=== PATIENT | female | born 1955 | race Two or more races ===

== ENCOUNTER 2021-07-04 08:06 | Inpatient (IN) | payer SELFPAY ==
[~2021-07-04] VITALS: Ht 167.6 cm; Wt 83.9 kg
--- NOTE | 2021-07-04 08:10 | NUR ---
BIBRA 89 FROM HOME C/O R HIP PAIN S/P MECHANICAL GROUND LEVEL FALL. VITALS ARE WITHIN NORMAL LIMITS. BREATHIN GIS EVEN AND UNLABORED. PT ATTACHED TO MONITOR. DR REINA AT BEDSIDE.
--- NOTE | 2021-07-04 08:14 | NUR ---
IV ESTABLISHED L HAND 22G
--- NOTE | 2021-07-04 08:18 | NUR ---
X RAY AT BEDSIDE
--- NOTE | 2021-07-04 09:18 | NUR ---
CALLED SHAHLA FOR EXPLANATION OF READ
--- NOTE | 2021-07-04 09:32 | NUR ---
DR REINA AT BEDSIDE
--- NOTE | 2021-07-04 09:37 | NUR ---
COVID TEST COLLECTED AND SENT
--- NOTE | 2021-07-04 09:37 | NUR ---
MOVE SHEET SUBMITTED AND CALLED FOR MS BED.
--- NOTE | 2021-07-04 09:42 | NUR ---
DR. CALDERA SPEAKING WITH DR. REINA
--- NOTE | 2021-07-04 09:45 | NUR ---
LAB AT BEDSIDE
[2021-07-04] MEDS ORDERED: CHOLESTEROL MED (10:31)
[2021-07-04] MEDS ORDERED: INSULIN (10:31)
--- NOTE | 2021-07-04 11:27 | NUR ---
URINARY CATHETER PLACED
--- NOTE | 2021-07-04 13:09 | NUR ---
BED 324-1
[2021-07-04 13:13] LABS: BASOPHILS # (AUTO) 0.1 K/uL (0.0-0.2); BASOPHILS % (AUTO) 0.4 % (0.0-2.0); EOSINOPHILS % (AUTO) 1.2 % (0.0-6.0); HEMATOCRIT 38 % (33-45); HEMOGLOBIN 11.8 g/dL (11.5-14.8); LYMPHOCYTES # (AUTO) 2.8 K/uL (0.8-4.8); LYMPHOCYTES % (AUTO) 20.6 % (20.0-44.0); MEAN CORPUSCULAR HGB CONC 31 g/dl (31.0-36.0); MEAN CORPUSCULAR VOLUME 81 fL (82-100); MONOCYTES # (AUTO) 0.8 K/uL (0.1-1.30); MONOCYTES % (AUTO) 5.7 % (2.0-12.0); NEUTROPHILS # (AUTO) 9.7 K/uL (1.8-8.9); NEUTROPHILS % (AUTO) 72.1 % (43.0-81.0); PLATELET COUNT (AUTO) 311 K/uL (150-450); RED BLOOD CELL COUNT(AUTO) 4.63 MIL/uL (4.0-5.2); WHITE BLOOD COUNT (AUTO) 13.5 K/uL (4.3-11.0)
--- NOTE | 2021-07-04 13:18 | NUR ---
REPORT GIVEN TO DEVI FOR RUTHIE
[2021-07-04 13:30] LABS: ALBUMIN 3.2 g/dL (3.4-5.0); BILIRUBIN,DIRECT 0.2 mg/dL (0.0-0.2); BILIRUBIN,TOTAL 0.3 mg/dL (0.2-1.0); CALCIUM, SERUM 8.7 mg/dL (8.5-10.1); CREATININE 1.1 mg/dL (0.6-1.3); POTASSIUM 4.1 mmol/L (3.5-5.1); TOTAL PROTEIN, SERUM 7.3 g/dL (6.4-8.2)
--- NOTE | 2021-07-04 13:30 | NUR ---
RN NOTE- 66 Y/O FEMALE PT W HIP / FEMUR FX ON UNIT FOR ADMISSION. REPORT RECEIVED. PT PLACED IN 324-2, MADE COMFORTABLE, CALL LIGHT AND PHONE IN REACH. SIDE RAILS UP, BED LOCKED.
--- NOTE | 2021-07-04 13:31 | NUR ---
PROFESSOR OF FLORICULTURE NOTE- 66 Y/O FEMALE BROUGHT BY AMBULANCE TO HOSPITAL AFTER GROUND LEVEL FALL AND RT THIGH / HIP PAIN. RESULTING XR SHOWS FRACTURE RT FEMUR. PT W PMHX- HLD, DM THOUGH MEDS UNKNOWN AT PRESENT. FAMILY DOESN'T KNOW AND IT IS DIFFICULT TO ASCERTAIN RX. PT ALSO HAS HX OF LEFT HIP FX FIVE YEARS AGO. NO OTHER MEDICAL HX. PT HAS NKA, IS FULL CODE AND ON REG DIET. PT DENIES PAIN AT PRESENT UNLESS MOVED. PT HAS HAD COVID VACCINE X 2 AND BOOSTER. VS- BP- 131/61, HR- 94, RR- 18, T- 98.8, SATURATION 95% RA. DR SHARIFA CARBALLO ADMITTING AND WILL COMPLETE MED RECON. PT FAMILY AT BEDSIDE. BED LOCKED, SIDE RAILS UP, CALL LIGHT IN REACH . COMFORTABLE . ORTHO CONSULT PENDING. MONITOR AND ASSIST
[2021-07-04 16:00] VITALS: BP 121/68
[2021-07-04] MEDS ORDERED: DEXTROSE 50%-WATER 50 ML DISP.SYRIN IV PRN (17:00)
[2021-07-04] MEDS ORDERED: ONDANSETRON HCL/PF 4 MG/2 ML VIAL IVP PRN (17:00)
[2021-07-04] MEDS ORDERED: ZOLPIDEM TARTRATE 5 MG TABLET PO PRN (17:00)
[2021-07-04] MEDS ORDERED: Z GUARD REMEDY 2 OZ OINT TP PRN (17:00)
[2021-07-04] MEDS ORDERED: ACETAMINOPHEN 325 MG TABLET PO PRN (17:00)
[2021-07-04] MEDS: BLOOD SUGAR DIAGNOSTIC 1 EACH STRIP IN SCH ×2 (17:23→22:18)
[2021-07-04] MEDS: INSULIN REGULAR, HUMAN 100 UNIT/ML 3 ML VIAL SQ PRN ×2 (17:25→22:21)
[2021-07-04] MEDS: ENOXAPARIN SODIUM 40 MG/0.4 ML DISP.SYRIN SQ SCH (17:56)
[2021-07-04] MEDS: INSULIN ASPART/LISPRO 100 UNIT/ML CARTRIDGE SQ SCH (17:56)
[2021-07-04] MEDS: MORPHINE SULFATE INJ 2 MG/ML DISP.SYRIN IV PRN (18:20)
--- NOTE | 2021-07-04 18:48 | NUR ---
RN CLOSING NOTE- PT IN BED, COMFORTABLE AWAKE W FAMILY AT BEDSIDE. PENDING ORIF IN SURGERY FOR RT FEMUR FX. MSO4 2MG FOR PAIN AND ZOFRAN FOR NAUSEA. PT W FAMILY, BED LOCKED , NEEDS ATTENDED. REPORT TO NOC SHIFT
--- NOTE | 2021-07-04 19:05 | NUR ---
LINUX ADMINISTRATOR OPENING NOTES: RECEIVED PATIENT IN BED, AWAKE, NO S/S OF DISTRESS NOTED. NO COMPLAIN OF PAIN. CALL LIGHT WITHIN REACH. BED ALARM ON. BED IN LOWEST AND LOCKED POSITION. BEDREST. ON SEIZURE PRECAUTION, SIDERAILS PADDED. WITH COSBY CATHETER INTACT, DRAINING CLEAR YELLOW URINE. FAMILY MEMBER AT THE BEDSIDE.
[2021-07-04 20:00] VITALS: BP 137/93
--- NOTE | 2021-07-04 21:00 | NUR ---
TELE MONITOR ELECTRODES PLACED ON THE PATIENT. PATIENT IS ON SINUS 80.
[2021-07-04] MEDS: INSULIN GLARGINE, 100 UNIT/ML CARTRIDGE SQ SCH (22:22)
[2021-07-05] VITALS: BP 111/60
[2021-07-05] MEDS: IV NS 0.9% 1,000 ML IV PRN ×2 (02:55→17:43)
[2021-07-05 04:00] VITALS: BP 112/63
[2021-07-05] MEDS: BLOOD SUGAR DIAGNOSTIC 1 EACH STRIP IN SCH ×4 (06:51→21:40)
[2021-07-05] MEDS: INSULIN REGULAR, HUMAN 100 UNIT/ML 3 ML VIAL SQ PRN ×4 (06:53→21:43)
--- NOTE | 2021-07-05 07:30 | NUR ---
REGISTERED NURSE MIDWIFE NOTES PT IN BED, AWAKE, ALERT AND ORIENTED, VERBALLY RESPONSIVE AND ABLE TO MAKE NEEDS KNOWN, DENIES PAIN, NOT IN DISTRESS, IV FLUIDS INFUSING WELL, CALL LIGHT WITHIN REACH, F/C IN PLACE.
[2021-07-05 08:00] VITALS: BP 138/63
[2021-07-05] MEDS: PANTOPRAZOLE 40 MG VIAL IV SCH (08:08)
[2021-07-05] MEDS: INSULIN ASPART/LISPRO 100 UNIT/ML CARTRIDGE SQ SCH ×3 (08:13→17:39)
[2021-07-05 13:08] LABS: BASOPHILS # (AUTO) 0.1 K/uL (0.0-0.2); BASOPHILS % (AUTO) 0.6 % (0.0-2.0); EOSINOPHILS % (AUTO) 3.3 % (0.0-6.0); HEMATOCRIT 34 % (33-45); HEMOGLOBIN 10.9 g/dL (11.5-14.8); LYMPHOCYTES # (AUTO) 3.5 K/uL (0.8-4.8); LYMPHOCYTES % (AUTO) 33.9 % (20.0-44.0); MEAN CORPUSCULAR HGB CONC 32 g/dl (31.0-36.0); MEAN CORPUSCULAR VOLUME 82 fL (82-100); MONOCYTES # (AUTO) 0.8 K/uL (0.1-1.30); MONOCYTES % (AUTO) 7.7 % (2.0-12.0); NEUTROPHILS # (AUTO) 5.6 K/uL (1.8-8.9); NEUTROPHILS % (AUTO) 54.5 % (43.0-81.0); PLATELET COUNT (AUTO) 273 K/uL (150-450); RED BLOOD CELL COUNT(AUTO) 4.14 MIL/uL (4.0-5.2); WHITE BLOOD COUNT (AUTO) 10.3 K/uL (4.3-11.0)
[2021-07-05 14:15] LABS: CALCIUM, SERUM 7.6 mg/dL (8.5-10.1); CREATININE 1.2 mg/dL (0.6-1.3); MAGNESIUM 1.7 mg/dL (1.8-2.4); POTASSIUM 3.8 mmol/L (3.5-5.1)
[2021-07-05 16:00] VITALS: BP 114/52
[2021-07-05] MEDS ORDERED: MAGNESIUM OXIDE 400 MG TABLET PO ONE (16:00)
[2021-07-05] MEDS: ENOXAPARIN SODIUM 40 MG/0.4 ML DISP.SYRIN SQ SCH (16:14)
--- NOTE | 2021-07-05 18:23 | NUR ---
RN MS NOTES PT IN BED, RESTING, NO COMPLAINT AT THIS TIME, RESPIRATIONS NORMAL, VISITED BY FAMILY, REPOSITIONED FOR COMFORT, PRECAUTIONS OBSERVED, BLOOD SUGAR CHECKED, INSULIN ADMINISTERED ORDERED, PM CARE PROVIDED, ASSISTED WITH MEALS, ALL NEEDS ATTENDED.
--- NOTE | 2021-07-05 19:20 | NUR ---
MS/RN NOTES PT RESTING IN BED, EASILY AROUSABLE TO STIMULI. A/OX4. SHE DENIES PAIN AT THIS TIME. RESPIRATIONS EVEN/UNLABORED. IV SITE R-FA #20G INTACT/PATENT/FLUSHES WELL. F/C IN PLACE, DRAINING WELL WITH CLEAR YELLOW URINE. PT IN NO ACUTE DISTRESS. SAFETY MEASURES IN PLACE, BED IN LOWEST LOCKED POSITION, S/R UPX2, CALL LIGHT WITHIN REACH. WILL CONT TO MONITOR.
[2021-07-05 20:00] VITALS: BP 144/65
[2021-07-05] MEDS: INSULIN GLARGINE, 100 UNIT/ML CARTRIDGE SQ SCH (21:43)
[2021-07-05] MEDS: MORPHINE SULFATE INJ 2 MG/ML DISP.SYRIN IV PRN (23:20)
[2021-07-06] MEDS: BLOOD SUGAR DIAGNOSTIC 1 EACH STRIP IN SCH ×4 (06:31→21:47)
[2021-07-06] MEDS: INSULIN REGULAR, HUMAN 100 UNIT/ML 3 ML VIAL SQ PRN ×4 (06:34→21:51)
[2021-07-06] MEDS: INSULIN ASPART/LISPRO 100 UNIT/ML CARTRIDGE SQ SCH ×3 (06:35→17:37)
--- NOTE | 2021-07-06 07:03 | NUR ---
MS/RN CLOSING NOTE PT SLEPT WELL DURING THE NIGHT. RESPIRATIONS EVEN/UNLABORED. IV INTACT, CONT ON NS @75ML/HR. NO ACUTE EVENTS DURING THE SHIFT. ALL NEEDS ATTENDED TO. SAFETY MEASURES MAINTAINED.
[2021-07-06] MEDS: IV NS 0.9% 1,000 ML IV PRN ×2 (07:19→21:31)
--- NOTE | 2021-07-06 07:30 | NUR ---
MS RN OPENING NOTES RECEIVED PATIENT AWAKE ON BED AND A/O X4. ON ROOM AIR BREATHING EVENLY AND UNLABORED. NO SOB NOTED. NOT IN DISTRESS. WITH NO COMPLAINTS OF PAIN OR DISCOMFORT AT THIS TIME. WITH IV ACCESS AT RIGHT FOREARM G20 WITH IVF NS AT 75ML/HR INFUSING WELL. IV SITE IS PATENT AND INTACT. SAFETY MEASURES IN PLACED. CALL LIGHT WITHIN REACH. BED ON LOWEST LOCKED POSITION, SIDE RAILS UP X2. WILL CONTINUE TO MONITOR.
[2021-07-06 08:00] VITALS: BP 144/52
[2021-07-06] MEDS: PANTOPRAZOLE 40 MG VIAL IV SCH (08:45)
[2021-07-06 11:03] LABS: BASOPHILS # (AUTO) 0.1 K/uL (0.0-0.2); BASOPHILS % (AUTO) 0.6 % (0.0-2.0); EOSINOPHILS % (AUTO) 3.7 % (0.0-6.0); HEMATOCRIT 30 % (33-45); HEMOGLOBIN 9.9 g/dL (11.5-14.8); LYMPHOCYTES # (AUTO) 2.5 K/uL (0.8-4.8); LYMPHOCYTES % (AUTO) 25.9 % (20.0-44.0); MEAN CORPUSCULAR HGB CONC 33 g/dl (31.0-36.0); MEAN CORPUSCULAR VOLUME 81 fL (82-100); MONOCYTES # (AUTO) 0.8 K/uL (0.1-1.30); MONOCYTES % (AUTO) 8.1 % (2.0-12.0); NEUTROPHILS % (AUTO) 61.7 % (43.0-81.0); PLATELET COUNT (AUTO) 245 K/uL (150-450); RED BLOOD CELL COUNT(AUTO) 3.67 MIL/uL (4.0-5.2); WHITE BLOOD COUNT (AUTO) 9.7 K/uL (4.3-11.0)
[2021-07-06 11:39] LABS: ALBUMIN 2.6 g/dL (3.4-5.0); BILIRUBIN,TOTAL 0.4 mg/dL (0.2-1.0); CREATININE 1.1 mg/dL (0.6-1.3); POTASSIUM 3.8 mmol/L (3.5-5.1); TOTAL PROTEIN, SERUM 6.5 g/dL (6.4-8.2)
[2021-07-06] MEDS ORDERED: ANESTHESIA TRAY IN PYXIS 1 EA TRAY MC ONE (11:49)
[2021-07-06 13:14] LABS: MAGNESIUM 2.1 mg/dL (1.8-2.4); PHOSPHORUS 4.2 mg/dL (2.5-4.9)
[2021-07-06] MEDS ORDERED: BISACODYL (5 MG) 5 MG TABLET.DR PO PRN (15:00)
[2021-07-06 16:00] VITALS: BP 127/60
[2021-07-06] MEDS: ENOXAPARIN SODIUM 40 MG/0.4 ML DISP.SYRIN SQ SCH (17:00)
--- NOTE | 2021-07-06 18:40 | NUR ---
RN NOTES PATIENT IS SCHEDULED FOR ORIF SURGERY TOMORROW BUT PATIENT AND FAMILY REFUSED FOR SURGERY. THEY SAID THEY ARE NOT READY FOR IT TOMORROW. REPORTED TO DR. CALDERA AND DR. CALDERA SPOKE WITH THE FAMILY BY PHONE. DR. CALDERA SAID HE WILL BE HERE TO SEE AND SPEAK WITH THE FAMILY TOMORROW.
--- NOTE | 2021-07-06 19:01 | NUR ---
MS RN CLOSING NOTES PATIENT RESTING ON BED AND A/O X4. ON 02 AT 2LPM BREATHING EVENLY AND UNLABORED. NO SOB NOTED. NOT IN DISTRESS. WITH NO COMPLAINTS OF PAIN OR DISCOMFORT AT THIS TIME. WITH IV ACCESS AT RIGHT AC G20 WITH IVF NS AT 75ML/HR INFUSING WELL. IV SITE IS PATENT AND INTACT. DUE MEDS GIVEN. SAFETY MEASURES IN PLACED. CALL LIGHT WITHIN REACH. BED ON LOWEST LOCKED POSITION, SIDE RAILS UP X4 PADDED FOR SEIZURE PRECAUTION. WILL ENDORSE TO NEXT SHIFT FOR RUTHIE.
--- NOTE | 2021-07-06 19:45 | NUR ---
MS URIBE OPENING NOTES RECEIVED PATIENT LAYING AWAKE IN BED. FAMIILY AT BEDSIDE. A/O X4. PATIENT WITH REGULAR AND UNLABORED BREATHING ON 3LPM VIA NASAL CANULA, TOLERATED WELL. NO SIGNS AND SYMPTOMS OF DISTRESS NOTED AT THIS TIME. NO COMPLAINS OF PAIN OR DISCOMFORT AT THIS TIME. IV ACCESS RFA G#20 RUNNING NS @ 75 ML/HR. IV ACCESS PATENT AND INTACT. SAFETY PRECAUTIONS ENFORCED BED LOCKED AND AT LOWEST POSITION. SIDERAILS UP X2. CALL LIGHT WITHIN REACH AT ALL TIMES. WILL CONTINUE TO MONITOR PATIENT. Addendum: 07/06/21 at 2309 by BRITNEY HERRERA RN PATIENT IS ON ROOM AIR DISREGARD 3 LPM NASAL CANULA
[2021-07-06 20:00] VITALS: BP 117/56
[2021-07-06] MEDS: INSULIN GLARGINE, 100 UNIT/ML CARTRIDGE SQ SCH (21:49)
[2021-07-07] MEDS: MORPHINE SULFATE INJ 2 MG/ML DISP.SYRIN IV PRN ×2 (01:38→18:06)
--- NOTE | 2021-07-07 01:39 | NUR ---
MS RN NOTES PATIENT COMPLAINED OF PAIN. ADMINISTERED MORPHINE 2MG IV PRN ORDERED BY HOSPITALIST.
[2021-07-07] MEDS: BLOOD SUGAR DIAGNOSTIC 1 EACH STRIP IN SCH ×4 (06:32→22:48)
[2021-07-07] MEDS: INSULIN REGULAR, HUMAN 100 UNIT/ML 3 ML VIAL SQ PRN ×3 (06:38→23:01)
--- NOTE | 2021-07-07 07:12 | NUR ---
MS RN CLOSING NOTES PATIENT STILL LAYING AWAKE IN BED. FAMIILY AT BEDSIDE. A/O X4. PATIENT WITH REGULAR AND UNLABORED BREATHING ON ROOM AIR, TOLERATED WELL. NO SIGNS AND SYMPTOMS OF DISTRESS NOTED AT THIS TIME. NO COMPLAINS OF PAIN OR DISCOMFORT AT THIS TIME. IV ACCESS RFA G#20 RUNNING NS @ 75 ML/HR. IV ACCESS PATENT AND INTACT. SAFETY PRECAUTIONS ENFORCED BED LOCKED AND AT LOWEST POSITION. SIDERAILS UP X2. CALL LIGHT WITHIN REACH AT ALL TIMES. WILL ENDORSE CONTINUITY OF CARE TO DAY SHIFT NURSE.
[2021-07-07] MEDS: INSULIN ASPART/LISPRO 100 UNIT/ML CARTRIDGE SQ SCH ×3 (07:30→18:10)
--- NOTE | 2021-07-07 07:30 | NUR ---
PT RECEIVED RESTING COMFORTABLY IN BED WITH EYES CLOSED. NO S/S OR C/O PAIN OR DISTRESS NOTED. SIDE RAILS UP X2, CALL LIGHT LEFT WITHIN REACH. WILL CONTINUE PLAN OF CARE.
[2021-07-07 07:42] LABS: BASOPHILS % (AUTO) 0.5 % (0.0-2.0); EOSINOPHILS % (AUTO) 2.8 % (0.0-6.0); HEMATOCRIT 30 % (33-45); HEMOGLOBIN 9.9 g/dL (11.5-14.8); LYMPHOCYTES % (AUTO) 31.4 % (20.0-44.0); MEAN CORPUSCULAR HGB CONC 33 g/dl (31.0-36.0); MEAN CORPUSCULAR VOLUME 81 fL (82-100); MONOCYTES # (AUTO) 0.7 K/uL (0.1-1.30); MONOCYTES % (AUTO) 7.2 % (2.0-12.0); NEUTROPHILS # (AUTO) 5.6 K/uL (1.8-8.9); NEUTROPHILS % (AUTO) 58.1 % (43.0-81.0); PLATELET COUNT (AUTO) 247 K/uL (150-450); RED BLOOD CELL COUNT(AUTO) 3.69 MIL/uL (4.0-5.2); WHITE BLOOD COUNT (AUTO) 9.6 K/uL (4.3-11.0)
[2021-07-07 08:06] LABS: CALCIUM, SERUM 8.3 mg/dL (8.5-10.1); CREATININE 0.9 mg/dL (0.6-1.3); MAGNESIUM 2.1 mg/dL (1.8-2.4); PHOSPHORUS 3.7 mg/dL (2.5-4.9); POTASSIUM 3.8 mmol/L (3.5-5.1)
[2021-07-07 08:11] VITALS: BP 112/55
[2021-07-07] MEDS: ENOXAPARIN SODIUM 40 MG/0.4 ML DISP.SYRIN SQ SCH (11:43)
[2021-07-07] MEDS: PANTOPRAZOLE 40 MG TABLET.DR PO SCH (12:07)
[2021-07-07 15:53] VITALS: BP 123/55
--- NOTE | 2021-07-07 19:27 | NUR ---
CHANGE OF SHIFT REPORT PT RESTING COMFORTABLY IN BED. NO S/S OR C/O PAIN OR DISTRESS NOTED. SIDE RAILS UP X2, CALL LIGHT LEFT WITHIN REACH. PT KEPT CLEAN, DRY, AND COMFORTABLE. NO SIGNIFICANT CHANGES SINCE PREVIOUS SHIFT. WILL GIVE REPORT TO FRAN URIBE.
--- NOTE | 2021-07-07 19:30 | NUR ---
MS RN OPENING NOTE RECEIVED PATIENT WITH EYES CLOSED, EASY TO AROUSE. FARSI SPEAKING. NO S/S OF APPARENT DISTRESS. NO C/O PAIN. IV NS RUNNING AT 75CC/HR. COSBY CATHETER NOTED IN PLACE DRAINING CLEAR NORTH YELLOW URINE. SAFETY IN PLACE. WILL CONTINUE WITH PLAN OF CARE.
[2021-07-07 20:00] VITALS: BP 126/65
[2021-07-07] MEDS: INSULIN GLARGINE, 100 UNIT/ML CARTRIDGE SQ SCH (22:00)
--- NOTE | 2021-07-08 02:00 | NUR ---
PATIENT CAME BACK FROM SURGERY, PATIENT IS IN ROOM SLEEPING. VITAL SIGNS STABLE.
[2021-07-08] MEDS: IV NS 0.9% 1,000 ML IV PRN ×2 (04:12→16:46)
[2021-07-08] MEDS: BLOOD SUGAR DIAGNOSTIC 1 EACH STRIP IN SCH ×4 (06:54→22:46)
[2021-07-08] MEDS: INSULIN REGULAR, HUMAN 100 UNIT/ML 3 ML VIAL SQ PRN ×2 (06:55→17:57)
[2021-07-08] MEDS ORDERED: FENTANYL PF 250MCG/5ML AMPUL ONE (07:02)
[2021-07-08] MEDS ORDERED: HYDROMORPHONE INJ 2 MG/ML DISP.SYRIN ONE (07:02)
[2021-07-08] MEDS ORDERED: ROCURONIUM BROMIDE 50 MG/5 ML ONE (07:03)
[2021-07-08] MEDS ORDERED: MIDAZOLAM HCL 2 MG/2ML VIAL ONE (07:03)
[2021-07-08] MEDS ORDERED: FAMOTIDINE/PF INJ 20 MG/2 ML VIAL IV ONE (07:03)
[2021-07-08 07:19] LABS: BASOPHILS # (AUTO) 0.1 K/uL (0.0-0.2); BASOPHILS % (AUTO) 0.9 % (0.0-2.0); HEMATOCRIT 31 % (33-45); HEMOGLOBIN 9.9 g/dL (11.5-14.8); LYMPHOCYTES # (AUTO) 3.1 K/uL (0.8-4.8); LYMPHOCYTES % (AUTO) 34.4 % (20.0-44.0); MEAN CORPUSCULAR HGB CONC 32 g/dl (31.0-36.0); MEAN CORPUSCULAR VOLUME 81 fL (82-100); MONOCYTES # (AUTO) 0.6 K/uL (0.1-1.30); MONOCYTES % (AUTO) 7.1 % (2.0-12.0); NEUTROPHILS # (AUTO) 4.7 K/uL (1.8-8.9); NEUTROPHILS % (AUTO) 52.6 % (43.0-81.0); PLATELET COUNT (AUTO) 294 K/uL (150-450); RED BLOOD CELL COUNT(AUTO) 3.75 MIL/uL (4.0-5.2)
[2021-07-08] MEDS ORDERED: POLYMYXIN B SULFATE 500,000 UNITS ONE (07:26)
[2021-07-08] MEDS ORDERED: BUPIVACAINE 0.5 % PF 150 MG/30 ML VIAL ONE (07:27)
[2021-07-08] MEDS: PANTOPRAZOLE 40 MG TABLET.DR PO SCH (07:30)
[2021-07-08] MEDS: INSULIN ASPART/LISPRO 100 UNIT/ML CARTRIDGE SQ SCH ×3 (07:30→17:56)
--- NOTE | 2021-07-08 07:34 | NUR ---
MS RN CLOSING NOTE REPORT GIVEN TO KIRA FOR CONTINUITY OF CARE.
[2021-07-08 07:37] LABS: CALCIUM, SERUM 8.6 mg/dL (8.5-10.1); PHOSPHORUS 3.7 mg/dL (2.5-4.9); POTASSIUM 3.9 mmol/L (3.5-5.1)
--- NOTE | 2021-07-08 07:40 | NUR ---
RN OPENING NOTES PATIENT IS IN BED RESTING, AWAKE. A/O X4. NO S/S OF PAIN NOTED AT THIS TIME. ON ROOM AIR, NO DISTRESS OR SHORTNESS OF BREATH NOTED. IV R WRIST#22G, INTACT AND PATENT. FALL AND SAFETY MEASURES IN PLACE, BED ALARM ON, BED IN LOW AND LOCK POSITION, CALL LIGHT AND TABLE WITHIN EASY REACH, SIDE RAILS UP X2. WILL CONTINUE TO MONITOR.
--- NOTE | 2021-07-08 07:45 | NUR ---
RN NOTE PATIENT IS NOT IN HER ROOM, PATIENT WAS TAKEN TO SURGERY.
[2021-07-08 08:29] VITALS: BP 120/53
[2021-07-08] MEDS ORDERED: DOCUSATE SODIUM 100 MG CAPSULE PO PRN (13:30)
[2021-07-08] MEDS ORDERED: ACETAMINOPHEN 650 MG/20.3 ML UDC PO PRN (13:30)
[2021-07-08 15:52] VITALS: BP 114/49
[2021-07-08] MEDS: ANCEF 1 GM/50 ML D5W IV SCH (16:46)
[2021-07-08] MEDS: MORPHINE SULFATE INJ 2 MG/ML DISP.SYRIN IV PRN (17:53)
[2021-07-08] MEDS: ENOXAPARIN SODIUM 40 MG/0.4 ML DISP.SYRIN SQ SCH (17:54)
--- NOTE | 2021-07-08 19:00 | NUR ---
3RD GRADE TEACHER OPENING NOTE RECEIVED PT IN BED, AWAKE AND RESTING. , NO SOB OR RESPIRATORY DISTRESS NOTED, NO C/O PAIN AT THIS TIME. RESPIRATIONS EVEN AND UNLABORED. IV ACCESS NOTED IN RIGHT AC G# 22. . FALL AND SAFETY MEASURES IN PLACE AND MAINTAINED AT ALL TIMES. BED ALARM, BED IN LOW AND LOCKED POSITION, HOB ELEVATED TO SEMI FOWLERS POSITION, CALL LIGHT AND TABLE WITHIN REACH. SIDE RAILS UP X2. WILL CONTINUE WITH PLAN OF CARE. Addendum: 07/09/21 at 0803 by PRAKASH STRICKLAND RN 3RD GRADE TEACHER OPENING NOTE RECEIVED PT IN BED, AWAKE AND RESTING. , NO SOB OR RESPIRATORY DISTRESS NOTED, NO C/O PAIN AT THIS TIME. RESPIRATIONS EVEN AND UNLABORED. IV ACCESS NOTED IN RIGHT WRIST G# 22. . FALL AND SAFETY MEASURES IN PLACE AND MAINTAINED AT ALL TIMES. BED ALARM, BED IN LOW AND LOCKED POSITION, HOB ELEVATED TO SEMI FOWLERS POSITION, CALL LIGHT AND TABLE WITHIN REACH. SIDE RAILS UP X2. WILL CONTINUE WITH PLAN OF CARE.
[2021-07-08 20:00] VITALS: BP 110/57
--- NOTE | 2021-07-08 20:08 | NUR ---
RN CLOSING NOTES PATIENT IS IN BED RESTING, SLEEPING, AWAKENS TO VERBAL STIMULI. A/O X4. NO S/S OF PAIN NOTED AT THIS TIME. ON ROOM AIR, NO DISTRESS OR SHORTNESS OF BREATH NOTED. IV R WRIST#22G, INTACT AND PATENT. FALL AND SAFETY MEASURES IN PLACE, BED ALARM ON, BED IN LOW AND LOCK POSITION, CALL LIGHT AND TABLE WITHIN EASY REACH, SIDE RAILS UP X2. WILL ENDORSE TO EMBALMER ASSISTANT.
[2021-07-08] MEDS: INSULIN GLARGINE, 100 UNIT/ML CARTRIDGE SQ SCH (22:47)
[2021-07-09] VITALS (11 sets, daily range): BP systolic 100–155; BP diastolic 41–92
--- NOTE | 2021-07-09 00:15 | NUR ---
WENT TO COLLECT BLOOD BUT JOSLYN SAID IS NOT READY YET, ASKED TO COME BACK AT 6AM.
[2021-07-09] MEDS: ANCEF 1 GM/50 ML D5W IV SCH (00:39)
[2021-07-09] MEDS: BLOOD SUGAR DIAGNOSTIC 1 EACH STRIP IN SCH ×4 (06:00→22:30)
[2021-07-09] MEDS: INSULIN ASPART/LISPRO 100 UNIT/ML CARTRIDGE SQ SCH ×3 (06:01→19:59)
[2021-07-09] MEDS: HYDROCODONE/APAP 5/325MG TABLET PO PRN (06:59)
--- NOTE | 2021-07-09 07:30 | NUR ---
MS RN OPENING NOTES PATIENT IS IN BED RESTING, AWAKE. A/O X4. FARSI SPEAKING. NO S/S OF PAIN NOTED AT THIS TIME. ON ROOM AIR, NO DISTRESS OR SHORTNESS OF BREATH NOTED. IV R WRIST#22G, INTACT AND PATENT. FALL AND SAFETY MEASURES IN PLACE, BED ALARM ON, BED IN LOW AND LOCK POSITION, CALL LIGHT AND TABLE WITHIN EASY REACH, SIDE RAILS UP X2. WILL CONTINUE TO MONITOR.
[2021-07-09 07:40] LABS: BASOPHILS # (AUTO) 0.1 K/uL (0.0-0.2); BASOPHILS % (AUTO) 0.5 % (0.0-2.0); HEMATOCRIT 25 % (33-45); HEMOGLOBIN 8.3 g/dL (11.5-14.8); LYMPHOCYTES % (AUTO) 19.7 % (20.0-44.0); MEAN CORPUSCULAR HGB CONC 33 g/dl (31.0-36.0); MEAN CORPUSCULAR VOLUME 81 fL (82-100); MONOCYTES # (AUTO) 0.8 K/uL (0.1-1.30); NEUTROPHILS # (AUTO) 7.3 K/uL (1.8-8.9); NEUTROPHILS % (AUTO) 70.8 % (43.0-81.0); PLATELET COUNT (AUTO) 301 K/uL (150-450); RED BLOOD CELL COUNT(AUTO) 3.12 MIL/uL (4.0-5.2); WHITE BLOOD COUNT (AUTO) 10.3 K/uL (4.3-11.0)
[2021-07-09 07:55] LABS: CALCIUM, SERUM 8.1 mg/dL (8.5-10.1); CREATININE 1.2 mg/dL (0.6-1.3); POTASSIUM 3.8 mmol/L (3.5-5.1)
[2021-07-09] MEDS: PANTOPRAZOLE 40 MG TABLET.DR PO SCH (08:20)
[2021-07-09] MEDS: ENOXAPARIN SODIUM 40 MG/0.4 ML DISP.SYRIN SQ SCH (17:00)
--- NOTE | 2021-07-09 18:12 | NUR ---
RN NOTE STARTED TRANSFUSION PATIENT EDUCATED ON TRANSFUSION REACTION, VITALS WNL AND DOCUMENTED. WILL CONTINUE TO MONITOR
[2021-07-09] MEDS: INSULIN GLARGINE, 100 UNIT/ML CARTRIDGE SQ SCH (22:31)
--- NOTE | 2021-07-10 01:38 | NUR ---
MS RN NOTES TRANSFUSION DONE AT 2111. VITAL SIGNS WITHIN NORMAL RANGES. NO S/S OF DISTRESS NOTED. NO RESPIRATORY DISTRESS NOTED. NO REACTION NOTED. PATIENT IN STABLE CONDITION.
[2021-07-10] MEDS: BLOOD SUGAR DIAGNOSTIC 1 EACH STRIP IN SCH ×4 (05:49→22:18)
--- NOTE | 2021-07-10 06:29 | NUR ---
MS RN CLOSING NOTES PATIENT IS IN BED RESTING, AWAKE. A/O X4. FARSI SPEAKING. NO S/S OF PAIN NOTED AT THIS TIME. ON ROOM AIR, NO DISTRESS OR SHORTNESS OF BREATH NOTED. RIGHT MIDLINE G 22 , INTACT AND PATENT. ALL DUE MEDS GIVEN ORDERED.FALL AND SAFETY MEASURES IN PLACE, BED ALARM ON, BED IN LOW AND LOCK POSITION, CALL LIGHT AND TABLE WITHIN EASY REACH, SIDE RAILS UP X2. WILL CONTINUE TO MONITOR.
[2021-07-10] MEDS: INSULIN ASPART/LISPRO 100 UNIT/ML CARTRIDGE SQ SCH ×3 (06:40→17:43)
[2021-07-10 07:28] LABS: BASOPHILS # (AUTO) 0.1 K/uL (0.0-0.2); BASOPHILS % (AUTO) 0.6 % (0.0-2.0); EOSINOPHILS % (AUTO) 3.4 % (0.0-6.0); HEMATOCRIT 26 % (33-45); HEMOGLOBIN 8.8 g/dL (11.5-14.8); LYMPHOCYTES # (AUTO) 3.1 K/uL (0.8-4.8); LYMPHOCYTES % (AUTO) 30.9 % (20.0-44.0); MEAN CORPUSCULAR HGB CONC 34 g/dl (31.0-36.0); MEAN CORPUSCULAR VOLUME 82 fL (82-100); MONOCYTES % (AUTO) 9.6 % (2.0-12.0); NEUTROPHILS # (AUTO) 5.5 K/uL (1.8-8.9); NEUTROPHILS % (AUTO) 55.5 % (43.0-81.0); PLATELET COUNT (AUTO) 316 K/uL (150-450); RED BLOOD CELL COUNT(AUTO) 3.16 MIL/uL (4.0-5.2); WHITE BLOOD COUNT (AUTO) 9.9 K/uL (4.3-11.0)
--- NOTE | 2021-07-10 07:56 | NUR ---
RN-NOTES RECEIVED PATIENT IN BED TALKING TO THE PHONE AWAKE,ALERT X4 ,NO ACUTE DISTRESS NOTED. PATIENT ONGOING IV FLUID OF NS @75ML/HT,INFUSING WELL . COSBY CATH INTACT DRAINING YELLOW URINE NO SEDIMENTATION NOTED. S/P R FEMUR OPEN REDUCTION,DENIES ANY PAIN AT THE SITE ABLE TO MOVE HER TOES. WILL CONT. MONITORING.
[2021-07-10 08:00] VITALS: BP 111/58
--- NOTE | 2021-07-10 08:39 | NUR ---
RN-NOTES RECEIVED VERBAL ORDER FROM DAVIDSON YAÑEZ TO CHANGE DIET TO MECHANICAL SOFT.NOTED AND CARRIED OUT.
[2021-07-10] MEDS: PANTOPRAZOLE 40 MG TABLET.DR PO SCH (08:47)
[2021-07-10 09:02] LABS: CALCIUM, SERUM 8.1 mg/dL (8.5-10.1); POTASSIUM 3.8 mmol/L (3.5-5.1)
[2021-07-10] MEDS: HYDROCODONE/APAP 5/325MG TABLET PO PRN ×2 (10:22→20:28)
[2021-07-10] MEDS: INSULIN REGULAR, HUMAN 100 UNIT/ML 3 ML VIAL SQ PRN ×3 (12:22→22:21)
[2021-07-10 16:00] VITALS: BP 112/59
[2021-07-10] MEDS: ENOXAPARIN SODIUM 40 MG/0.4 ML DISP.SYRIN SQ SCH (17:24)
--- NOTE | 2021-07-10 18:59 | NUR ---
RN-CLOSING NOTES PATIENT IN BED TALKING TO FAMILY AT BEDSIDE A/O X4 ,NO ACUTE DISTRESS NOTED. PATIENT ONGOING IV FLUID OF NS @75ML/HR,INFUSING WELL . COSBY CATH INTACT DRAINING YELLOW URINE NO SEDIMENTATION NOTED. S/P R FEMUR OPEN REDUCTION,DENIES ANY PAIN AT THE SITE AT THIS TIME. ABLE TO MOVE HER TOES. ALL NEEDS ATTENDED AND ANTICIPATED. CALL LIGHT WITHIN REACH.WILL ENDORSE TO INCOMING NURSE FOR CONTINUITY OF CARE.
[2021-07-10] MEDS: IV NS 0.9% 1,000 ML IV PRN (19:45)
[2021-07-10 21:00] VITALS: BP 104/53
[2021-07-10] MEDS: INSULIN GLARGINE, 100 UNIT/ML CARTRIDGE SQ SCH (22:20)
[2021-07-10] MEDS: SENNOSIDES 8.6 MG TABLET PO PRN (23:27)
[2021-07-11] MEDS: HYDROCODONE/APAP 5/325MG TABLET PO PRN ×3 (04:09→14:02)
[2021-07-11] MEDS: BLOOD SUGAR DIAGNOSTIC 1 EACH STRIP IN SCH ×4 (06:34→22:30)
[2021-07-11] MEDS: INSULIN REGULAR, HUMAN 100 UNIT/ML 3 ML VIAL SQ PRN ×4 (06:36→22:44)
[2021-07-11] MEDS: INSULIN ASPART/LISPRO 100 UNIT/ML CARTRIDGE SQ SCH ×3 (06:36→17:49)
--- NOTE | 2021-07-11 07:15 | NUR ---
RN NOTES PT RESTING IN BED, EASILY AROUSABLE TO STIMULI, A/OX4, ABLE TO MAKE NEEDS KNOWN. PT DENIES PAIN AT THIS TIME. NO SOB. IV SITE: LUI MIDLINE INTACT/PATENT, ONGOING IVF OF NS @75ML/HR. WITH F/C IN PLACE, DRAINING CLEAR YELLOW URINE, OUTPUT 1100ML THIS SHIFT. PT WITH R-KNEE IMMOBILIZER IN PLACE. PT IN NO ACUTE DISTRESS. SAFETY MEASURES MAINTAINED. ALL NEEDS ATTENDED TO.
--- NOTE | 2021-07-11 07:30 | NUR ---
RN OPENING NOTE- PATIENT IS IN BED RESTING, AWAKE. A/O X4. FARSI SPEAKING. NO S/S OF PAIN NOTED AT THIS TIME. MEDICATED EARLY THIS MORNING W NORCO. PT ON 2LPM VIA NC. 02 SATS 98%. REMOVED O2. PLACED ON ON ROOM AIR, NO DISTRESS OR SHORTNESS OF BREATH NOTED. 0S SATS 97% ON RA. LUI MIDLINE W NS @ 75/HR. FALL AND SAFETY MEASURES IN PLACE, BED ALARM ON, BED IN LOW AND LOCK POSITION, CALL LIGHT AND TABLE WITHIN EASY REACH, SIDE RAILS UP X2. WILL CONTINUE TO MONITOR.
[2021-07-11] MEDS: PANTOPRAZOLE 40 MG TABLET.DR PO SCH (08:26)
[2021-07-11 08:49] VITALS: BP 102/52
[2021-07-11] MEDS: IV NS 0.9% 1,000 ML IV PRN (10:12)
[2021-07-11 15:50] VITALS: BP 105/49
[2021-07-11] MEDS: ENOXAPARIN SODIUM 40 MG/0.4 ML DISP.SYRIN SQ SCH (17:45)
--- NOTE | 2021-07-11 18:29 | NUR ---
RN CLOSING NOTE- PATIENT IS IN BED RESTING, AWAKE. A/O X4. FARSI SPEAKING. NO S/S OF PAIN NOTED AT THIS TIME. NORCO EFFECTIVE . PT ON ROOM AIR, NO DISTRESS OR SHORTNESS OF BREATH NOTED. 0S SATS 97% ON RA. LUI MIDLINE W NS @ 75/HR. FALL AND SAFETY MEASURES IN PLACE, BED ALARM ON, BED IN LOW AND LOCK POSITION, CALL LIGHT AND TABLE WITHIN EASY REACH, SIDE RAILS UP X2. WILL CONTINUE TO MONITOR.
--- NOTE | 2021-07-11 19:55 | NUR ---
MS RN OPENING NOTE PATIENT RESTING IN BED, ALERT/ORIENTED X 3, PRIMARILY FARSI SPEAKING. PT DENIES PAIN AT THIS TIME. PT STABLE ON 2 LPM OF OXYGEN VIA NC, NO S/S OF DISTRESS OR SOB NOTED, BREATHING EVEN AND UNLABORED. LUI MIDLINE INTACT AND RUNNING NS @ 75 ML/HR. SAFETY MEASURES IN PLACE: CALL LIGHT WITHIN REACH, SIDE RAILS UP X 2, BED LOCKED IN LOW POSITION, BED ALARM ON. WILL CONTINUE TO MONITOR PATIENT
[2021-07-11 20:00] VITALS: BP 116/44
[2021-07-11] MEDS: INSULIN GLARGINE, 100 UNIT/ML CARTRIDGE SQ SCH (22:43)
[2021-07-12] MEDS: IV NS 0.9% 1,000 ML IV PRN (00:11)
[2021-07-12] MEDS: BLOOD SUGAR DIAGNOSTIC 1 EACH STRIP IN SCH ×4 (07:08→23:10)
[2021-07-12] MEDS: INSULIN ASPART/LISPRO 100 UNIT/ML CARTRIDGE SQ SCH ×3 (07:09→17:20)
[2021-07-12 08:00] VITALS: BP 109/75
[2021-07-12] MEDS: PANTOPRAZOLE 40 MG TABLET.DR PO SCH (08:53)
[2021-07-12] MEDS: INSULIN REGULAR, HUMAN 100 UNIT/ML 3 ML VIAL SQ PRN ×3 (12:21→23:13)
[2021-07-12] MEDS: SENNOSIDES 8.6 MG TABLET PO PRN (12:53)
--- NOTE | 2021-07-12 13:43 | NUR ---
RN NOTES PATIENT VERBALIZED THAT SHE FELT SOMETHING OPEN ON HER BACK. SKIN CHECK OF THE BACK DOWN AND SACRAL AREA WAS NOTED W/ OPEN SKIN/WOUND ON THE SUPERFICIAL SURFACE. PHOTO OF SKIN ISSUE TAKEN AND SKIN AREA WAS CLEANED AND SECURED W/ MEPILEX FOAM. WOUND CARE CONSULT REQUESTED. PATIENT CURRENTLY TURNED ON LEFT LATERAL POSITION FOR OFFLOADING RLE HAS IMMOBILIZER IN PLACE.
--- NOTE | 2021-07-12 14:33 | NUR ---
RN NOTES PATIENT W/ SMALL BM X1, SOFT AND BROWN IN CONSISTENCY AND COLOR, RESPECTIVELY. PATIENT VERBALIZED RELIEF OF PASSING STOOL.
[2021-07-12 16:00] VITALS: BP 114/56
[2021-07-12] MEDS: ENOXAPARIN SODIUM 40 MG/0.4 ML DISP.SYRIN SQ SCH (17:00)
--- NOTE | 2021-07-12 19:00 | NUR ---
RN NOTES FOAM DRESSING CHANGED X2. REPOSITIONED IN BED FOR COMFORT. RLE IMMOBILIZER IN PLACE; CIRCULATION CHECKED. NO COMPLAINT OF PAIN AT THIS TIME. SAFETY MEASURES MAINTAINED. WILL ENDORSE TO BUSINESS ACCOUNT LEADER RN FOR RUTHIE.
[2021-07-12 20:00] VITALS: BP 105/42
--- NOTE | 2021-07-12 20:00 | NUR ---
RECEIVED PATIENT IN BED, ALERT/ORIENTED X3, FARSI SPEAKING, 2LPM VIA NC, NO COMPLAIN OF PAIN, S/P RIGHT FEMUR ORIF, IMMOBILIZER ON AT ALL TIMES, ABLE TO WIGGLE TOES, SKIN WARM TO TOUCH, KEPT SAFE, WILL CONTINUE TO MONITOR.
[2021-07-12] MEDS: INSULIN GLARGINE, 100 UNIT/ML CARTRIDGE SQ SCH (23:16)
[2021-07-13] MEDS: INSULIN REGULAR, HUMAN 100 UNIT/ML 3 ML VIAL SQ PRN ×3 (06:40→17:07)
--- NOTE | 2021-07-13 06:50 | NUR ---
RN NOTES ALERT/ORIENTED, ON ROOM AIR NOW, SPO2 96%, NO COMPLAIN OF PAIN, RIGHT LEG IMMOBILIZER ON AT ALL TIMES, DRESSING DRY AND INTACT, DENIES NUMBNESS, ABLE TO PERFORM DORSIFLEXION AND PLANTARFLEXION, SMALL SACRAL WOUND, MEPILEX APPLIED, 0600 BG 113 NO COVERAGE, CLEARED FOR DISCHARGE, AWAITING PLACEMENT, ARU VS SNF.
[2021-07-13 07:04] LABS: BASOPHILS # (AUTO) 0.1 K/uL (0.0-0.2); BASOPHILS % (AUTO) 0.7 % (0.0-2.0); EOSINOPHILS % (AUTO) 5.7 % (0.0-6.0); HEMATOCRIT 26 % (33-45); HEMOGLOBIN 8.8 g/dL (11.5-14.8); LYMPHOCYTES # (AUTO) 3.1 K/uL (0.8-4.8); LYMPHOCYTES % (AUTO) 33.6 % (20.0-44.0); MEAN CORPUSCULAR HGB CONC 34 g/dl (31.0-36.0); MEAN CORPUSCULAR VOLUME 82 fL (82-100); MONOCYTES # (AUTO) 0.9 K/uL (0.1-1.30); MONOCYTES % (AUTO) 9.4 % (2.0-12.0); NEUTROPHILS # (AUTO) 4.7 K/uL (1.8-8.9); NEUTROPHILS % (AUTO) 50.6 % (43.0-81.0); PLATELET COUNT (AUTO) 490 K/uL (150-450); RED BLOOD CELL COUNT(AUTO) 3.19 MIL/uL (4.0-5.2); WHITE BLOOD COUNT (AUTO) 9.3 K/uL (4.3-11.0)
--- NOTE | 2021-07-13 07:20 | NUR ---
MS RN OPENING NOTES RECEIVED PT ON BED, AWAKE, VERBALLY RESPONSIVE, NO SIGNS OF ACUTE DISTRESS NOTED. ON ROOM AIR, TOLERATING WELL, NO SOB NOTED. NO C/O PAIN AT THIS TIME. IV ACCESS ON LUI ML INTACT. WITH F/C INTACT AND PATENT, DRAINING CLEAR YELLOW URINE. SAFETY MEASURES IN PLACE, BED LOCKED AND ITS LOWEST POSITION, SR UP X2, CALL LIGHT PLACED WITHIN EASY REACH. WILL CONTINUE TO MONITOR.
[2021-07-13] MEDS: INSULIN ASPART/LISPRO 100 UNIT/ML CARTRIDGE SQ SCH ×3 (07:30→17:08)
[2021-07-13] MEDS: BLOOD SUGAR DIAGNOSTIC 1 EACH STRIP IN SCH ×4 (07:51→22:37)
[2021-07-13] MEDS: PANTOPRAZOLE 40 MG TABLET.DR PO SCH (07:52)
[2021-07-13 07:54] LABS: CALCIUM, SERUM 8.7 mg/dL (8.5-10.1); CREATININE 0.9 mg/dL (0.6-1.3); POTASSIUM 3.6 mmol/L (3.5-5.1)
[2021-07-13 08:00] VITALS: BP 121/58
[2021-07-13] MEDS: HYDROCODONE/APAP 5/325MG TABLET PO PRN (10:09)
--- NOTE | 2021-07-13 10:10 | NUR ---
RN NOTES MEDICATED WITH NORCO FOR C/O RIGHT HIP PAIN. WILL CONTINUE TO MONITOR EFFECTIVENESS.
[2021-07-13 16:00] VITALS: BP 109/53
[2021-07-13] MEDS: ENOXAPARIN SODIUM 40 MG/0.4 ML DISP.SYRIN SQ SCH (16:37)
--- NOTE | 2021-07-13 18:46 | NUR ---
MS RN CLOSING NOTES PT ON BED, AWAKE, VERBALLY RESPONSIVE. FAMILY AT BEDSIDE. NO SIGNS OF ACUTE DISTRESS NOTED. ON ROOM AIR, TOLERATING WELL, NO SOB NOTED. ALL DUE MEDS GIVEN, TOLERATED WELL. IV ACCESS ON LUI ML INTACT, SL. WITH F/C INTACT AND PATENT, DRAINING CLEAR YELLOW URINE. WITH RIGHT LEG IMMOBILIZER IN PLACE, NOTED WITH GOOD CIRCULATION ON RIGHT LEG, DENIES ANY NUMBNESS. SAFETY MEASURES IN PLACE, BED LOCKED AND ITS LOWEST POSITION, SR UP X2, CALL LIGHT PLACED WITHIN EASY REACH. WILL ENDORSE TO NEXT SHIFT.
[2021-07-13 20:32] VITALS: BP 113/60
[2021-07-13] MEDS: INSULIN GLARGINE, 100 UNIT/ML CARTRIDGE SQ SCH (22:29)
--- NOTE | 2021-07-14 06:03 | NUR ---
RN CLOSING NOTES Patient is A&Ox4, VSS overnight. No s/s of hypo or hyperglycemic reactions. Had 1 BM via bedpan, soft brown WNL. 1 person assist with ADLs d/t pain weakness R leg/hip. F/c draining yellow clear urine. LUI midline intact and patent. Assist patient with repositioning and mepilex to buttocks for prevention. Patient denies pain at rest. Safety measures in place.
[2021-07-14] MEDS: INSULIN REGULAR, HUMAN 100 UNIT/ML 3 ML VIAL SQ PRN ×3 (06:46→22:30)
[2021-07-14] MEDS: BLOOD SUGAR DIAGNOSTIC 1 EACH STRIP IN SCH ×4 (06:52→22:28)
--- NOTE | 2021-07-14 07:50 | NUR ---
MS RN OPENING NOTES RECEIVED Pt IN BED, AWAKE, VERBALLY RESPONSIVE, NO SIGNS OF ACUTE DISTRESS NOTED AT THIS TIME. Pt IS ON ROOM AIR AND TOLERATING WELL, NO SOB NOTED. NO C/O PAIN AT THIS TIME. IV ACCESS ON LUI ML INTACT. WITH F/C INTACT AND PATENT, DRAINING CLEAR YELLOW URINE. SAFETY MEASURES ARE IN PLACE, BED IS LOCKED AND ITS LOWEST POSITION, SIDE RAILS UP X2, CALL LIGHT AND BEDSIDE TABLE ARE WITHIN REACH, WILL CONTINUE TO MONITOR THROUGHOUT THE SHIFT
--- NOTE | 2021-07-14 08:14 | NUR ---
WOUND CARE CONSULT: PT PRESENTS WITH INCONTINENCE ASSOCIATED SKIN DAMAGE OVER SACRAL SCARRING. PER NURSING STAFF, PT IS INCONTINENT OF STOOL. RECOMMENDATIONS MADE FOR SKIN PROTECTION. DISCUSSED WITH NURSING STAFF. PT IS ON JENNY ISOFLEX LOW AIRLOSS BED. IN AGREEMENT WITH PLAN OF CARE. Addendum: 07/14/21 at 0817 by BILLY VILLALBA WNDNU Amended: Links added.
[2021-07-14] MEDS: HYDROCODONE/APAP 5/325MG TABLET PO PRN ×2 (08:17→17:19)
[2021-07-14] MEDS: PANTOPRAZOLE 40 MG TABLET.DR PO SCH (08:17)
[2021-07-14] MEDS: INSULIN ASPART/LISPRO 100 UNIT/ML CARTRIDGE SQ SCH ×3 (08:33→18:14)
[2021-07-14 09:22] VITALS: BP 113/50
[2021-07-14 16:01] VITALS: BP 109/59
[2021-07-14] MEDS: ENOXAPARIN SODIUM 40 MG/0.4 ML DISP.SYRIN SQ SCH (17:17)
--- NOTE | 2021-07-14 18:59 | NUR ---
MS RN CLOSING NOTES Pt IS IN BED, AWAKE, VERBALLY RESPONSIVE AND FAMILY IS AT BEDSIDE. NO SIGNS OF ACUTE DISTRESS NOTED AT THIS TIME. ON ROOM AIR AND, TOLERATING WELL, NO SOB NOTED. ALL DUE MEDS GIVEN, TOLERATED WELL. IV ACCESS ON LUI ML INTACT, SL. WITH F/C INTACT AND PATENT, DRAINING CLEAR YELLOW URINE. WITH RIGHT LEG IMMOBILIZER IN PLACE, NOTED WITH GOOD CIRCULATION ON RIGHT LEG, DENIES ANY NUMBNESS. SAFETY MEASURES IN PLACE, BED LOCKED AND IN ITS LOWEST POSITION, SIDE RAILS UP X2, CALL LIGHT AND BEDSIDE TABLE PLACED WITHIN EASY REACH. WILL ENDORSE TO ONCOMING SHIFT.
--- NOTE | 2021-07-14 19:30 | NUR ---
MS/RN OPENING NOTE RECEIVED PATIENT RESTING IN BED. AWAKE, ALERT AND ORIENTED X 4. FAMILY AT BEDSIDE. PATIENT CONTINUES ON ROOM AIR WITH NO S/SX OF RESPIRATORY DISTRESS NOTED. IV ACCESS TO RIGHT UPPER ARM MIDLINE INTACT, PATENT AND SALINE LOCKED. COSBY CATHETER IN PLACE DRAINING CLEAR, YELLOW URINE TO GRAVITY. CONTINUES ON MECHANICAL SOFT DIET WITH NO S/SX OF ASPIRATION NOTED. CALL LIGHT WITHIN REACH. ASPIRATION, FALL AND SAFETY PRECAUTIONS MAINTAINED. WILL CONTINUE TO MONITOR.
[2021-07-14 20:36] VITALS: BP 111/52
[2021-07-14] MEDS: INSULIN GLARGINE, 100 UNIT/ML CARTRIDGE SQ SCH (22:34)
--- NOTE | 2021-07-15 06:20 | NUR ---
MS/RN CLOSING NOTE PATIENT RESTING IN BED. AWAKE, ALERT AND ORIENTED X 4. FAMILY AT BEDSIDE. PATIENT CONTINUES ON ROOM AIR WITH NO S/SX OF RESPIRATORY DISTRESS NOTED. IV ACCESS TO RIGHT UPPER ARM MIDLINE INTACT, PATENT AND SALINE LOCKED. COSBY CATHETER IN PLACE DRAINING CLEAR, YELLOW URINE TO GRAVITY. CONTINUES ON MECHANICAL SOFT DIET WITH NO S/SX OF ASPIRATION NOTED. CALL LIGHT WITHIN REACH. ASPIRATION, FALL AND SAFETY PRECAUTIONS MAINTAINED. WILL ENDORSE PLAN OF CARE TO ONCOMING SHIFT.
[2021-07-15] MEDS: BLOOD SUGAR DIAGNOSTIC 1 EACH STRIP IN SCH ×4 (06:53→22:00)
[2021-07-15] MEDS: INSULIN REGULAR, HUMAN 100 UNIT/ML 3 ML VIAL SQ PRN ×4 (06:54→22:09)
[2021-07-15] MEDS: INSULIN ASPART/LISPRO 100 UNIT/ML CARTRIDGE SQ SCH ×3 (06:55→17:02)
--- NOTE | 2021-07-15 07:20 | NUR ---
RN NOTES PATIENT IN BED RESTING, WATCHING TELEVISION, NOT IN ACUTE DISTRESS. BREATHING EVEN AND UNLABORED, ON ROOM AIR, ABLE TO MAKE NEEDS KNOWN. IV LINE INTACT AND PATENT. COSBY CATH IN PLACE, DRAINING YELLOW-COLORED URINE. TOLERATES DIET AT THIS TIME. SAFETY MEASURES IN PLACE. WILL CONTINUE TO MONITOR.
[2021-07-15] MEDS: PANTOPRAZOLE 40 MG TABLET.DR PO SCH (07:42)
[2021-07-15 08:26] VITALS: BP 105/48
[2021-07-15] MEDS: HYDROCODONE/APAP 5/325MG TABLET PO PRN (09:31)
--- NOTE | 2021-07-15 15:06 | NUR ---
RN NOTES PATIENT SEEN BY ADRIAN COVINGTON NP, W/ ORDER NOTED.
--- NOTE | 2021-07-15 15:16 | NUR ---
RN NOTES DRESSING CHANGE DONE ON SACRUM AREA.
[2021-07-15 15:34] VITALS: BP 103/51
[2021-07-15] MEDS: ENOXAPARIN SODIUM 40 MG/0.4 ML DISP.SYRIN SQ SCH (16:05)
--- NOTE | 2021-07-15 18:24 | NUR ---
RN NOTES PATIENT W/ ORDER FOR COSBY CATH REMOVAL BUT PATIENT REQUESTED FOR A FEMALE NURSE. JOJO MACDONALD, ABLE TO DO PROCEDURE.
--- NOTE | 2021-07-15 18:51 | NUR ---
RN NOTES COSBY CATHETER REMOVED PER TECHNICAL SERVICE ENGINEER ORDER; PATIENT ABLE TO VOID USING BED TORIBIO, ASSISTED TOLERATED. NO COMPLAINT OF PAIN AT THIS TIME. REPOSITIONED IN BED FOR COMFORT. SAFETY MEASURES MAINTAINED. WILL ENDORSE TO PERSONAL LINES ACCOUNT EXECUTIVE RN FOR RUTHIE.
--- NOTE | 2021-07-15 19:20 | NUR ---
RN OPENING NOTE PATIENT IN BED , AWAKE. FAMILY AT BEDSIDE. PATIENT FARSI SPEAKING. A/O X 4. PATIENT HAS A LUI MIDLINE SALINE LOCK.PATIENT NOT IN ANY APPARENT DISTRESS. SAFETY MEASURES IN PLACE: BED LOCKED AND IN LOWEST POSITION, CALL LIGHT WITHIN REACH, SIDE RAILS UP. WILL MONITOR PATIENT CLOSELY.
[2021-07-15 20:00] VITALS: BP 95/51
--- NOTE | 2021-07-15 22:00 | NUR ---
BS 254 MG/DL. 6 UNITS OF REGULAR INSULIN COVERAGE GIVEN AND LANTUS 20 UNITS. PATIENT EATS INDEPENDENTLY. WILL MONITOR FOR HYPOGLYCEMIA
[2021-07-15] MEDS: INSULIN GLARGINE, 100 UNIT/ML CARTRIDGE SQ SCH (22:08)
[2021-07-16] MEDS: INSULIN ASPART/LISPRO 100 UNIT/ML CARTRIDGE SQ SCH ×3 (06:38→17:17)
[2021-07-16] MEDS: INSULIN REGULAR, HUMAN 100 UNIT/ML 3 ML VIAL SQ PRN ×4 (06:40→22:07)
[2021-07-16] MEDS: BLOOD SUGAR DIAGNOSTIC 1 EACH STRIP IN SCH ×4 (06:46→22:08)
--- NOTE | 2021-07-16 07:19 | NUR ---
RN NOTES PATIENT IN BED RESTING, AWAKE AND VERBALLY RESPONSIVE, NOT IN ACUTE DISTRESS. BREATHING EVEN AND UNLABORED, TOLERATING ROOM AIR, ABLE TO MAKE NEEDS KNOWN. IV LINE INTACT AND PATENT. COSBY CATH REMOVED YESTERDAY, ABLE TO VOID PER [employer]ODUCT [employer]AIL PET RN. SAFETY MEASURES IN PLACE. WILL CONTINUE TO MONITOR.
--- NOTE | 2021-07-16 07:31 | NUR ---
RN CLOSING NOTE PATIENT IN BED EYES CLOSED, EASILY AWAKENED. NO COMPLAINTS OF PAIN AT THIS TIME. BS 140 MG/DL, 2 UNITS REGULAR GIVEN AND 5 UNITS SCHEDULED HUMALOG. PATIENT HAS LUI MIDLINE SALINE LOCKED, PATENT AND INTACT. WOUND CARE RENDERED. TOLERATES ROOM AIR. SAFETY MEASURES IMPLEMENTED. ALL NEEDS MET AND ATTENDED. ALL ORDERS CARRIED OUT. ENDORSED TO DAY SHIFT NURSE FOR RUTHIE.
[2021-07-16] MEDS: PANTOPRAZOLE 40 MG TABLET.DR PO SCH (07:53)
[2021-07-16 08:22] VITALS: BP 118/62
--- NOTE | 2021-07-16 09:20 | NUR ---
RN NOTES PATIENT SEEN BY PT TODAY FOR EVAL AND TX. ABLE TO DO SIT-STAND FROM BED, STILL NWB ON RLE. OFFERED PAIN MEDICATION TO PATIENT BUT PATIENT REFUSED, ABLE TO TOLERATE EXERCISE.
[2021-07-16 16:13] VITALS: BP 140/69
[2021-07-16] MEDS: ENOXAPARIN SODIUM 40 MG/0.4 ML DISP.SYRIN SQ SCH (16:17)
--- NOTE | 2021-07-16 19:16 | NUR ---
RN NOTES PATIENT IN BED RESTING, NOT IN ACUTE DISTRESS. ASSISTED W/ ADL'S TOLERATED. NO ACUTE DISTRESS. FAMILY AT BEDSIDE. SAFETY MEASURES MAINTAINED. ENDORSED TO [employer]ERCIAL SALES REPRESENTATIVE RN FOR RUTHIE.
--- NOTE | 2021-07-16 19:30 | NUR ---
RN OPENING NOTE PATIENT IN BED , AWAKE. AT BEDSIDE. PATIENT FARSI SPEAKING. A/O X 4. PATIENT HAS A LUI MIDLINE SALINE LOCK. PATIENT NOT IN ANY APPARENT DISTRESS. CURRENTLY TOLERATING ROOM AIR. NO PAIN VERBALIZED. SAFETY MEASURES IN PLACE: BED LOCKED AND IN LOWEST POSITION, CALL LIGHT WITHIN REACH, SIDE RAILS UP. WILL MONITOR PATIENT CLOSELY.
[2021-07-16 20:00] VITALS: BP 103/59
[2021-07-16] MEDS: INSULIN GLARGINE, 100 UNIT/ML CARTRIDGE SQ SCH (22:07)
[2021-07-17] MEDS: BLOOD SUGAR DIAGNOSTIC 1 EACH STRIP IN SCH ×4 (06:44→21:17)
[2021-07-17] MEDS: INSULIN ASPART/LISPRO 100 UNIT/ML CARTRIDGE SQ SCH ×3 (06:45→17:03)
[2021-07-17] MEDS: INSULIN REGULAR, HUMAN 100 UNIT/ML 3 ML VIAL SQ PRN ×4 (06:45→22:17)
--- NOTE | 2021-07-17 07:35 | NUR ---
RN CLOSING NOTE BS 230 AT 220 4 UNITS COVERAGE GIVEN, AND 178 AT 0630 3 UNITS REGULAR INSULIN GIVEN AND 5 UNITS SCHEDULED HUMALOG GIVEN. NO SIGNIFICANT CHANGES IN CONDITION. ENDORSED TO DAY SHIFT NURSE FOR RUTHIE.
[2021-07-17] MEDS: PANTOPRAZOLE 40 MG TABLET.DR PO SCH (07:59)
--- NOTE | 2021-07-17 08:00 | NUR ---
RN OPENING NOTE PT IN BED COMFORTABLY. NO DISTRESS NOTED. NO PAIN NOTED. SAFETY MEASURES IN PLACE. SIDE RAILS RAISED. BED LOWERED. CALL LIGHT WITHIN REACH. WILL CONTINUE TO MONITOR.
[2021-07-17] MEDS: ENOXAPARIN SODIUM 40 MG/0.4 ML DISP.SYRIN SQ SCH (17:04)
--- NOTE | 2021-07-17 19:47 | NUR ---
RN CLOSING NOTE PT IN BED COMFORTABLY. NO DISTRESS NOTED. NO PAIN NOTED. SAFETY MEASURES IN PLACE. SIDE RAILS RAISED. BED LOWERED. CALL LIGHT WITHIN REACH. REPORT GIVEN TO NIGHT NURSE FOR RUTHIE
[2021-07-17 20:00] VITALS: BP 98/47
[2021-07-17] MEDS: INSULIN GLARGINE, 100 UNIT/ML CARTRIDGE SQ SCH (22:16)
[2021-07-18] MEDS: INSULIN REGULAR, HUMAN 100 UNIT/ML 3 ML VIAL SQ PRN ×2 (06:32→11:57)
[2021-07-18] MEDS: BLOOD SUGAR DIAGNOSTIC 1 EACH STRIP IN SCH ×3 (06:35→17:56)
--- NOTE | 2021-07-18 06:46 | NUR ---
MS RN NOTES AWAKE & RESPONSIVE. NOT IN ANY DISTRESS. NO SOB NOTED. DENIES ANY PAIN OR DISCOMFORT AT THIS TIME. WITH ML PATENT & INTACT. MONITORED ACCORDINGLY. CALL LIGHT WITHIN REACH. BED IN LOWEST POSITION. SR UP X 3 WITH BED ALARM ON FOR SAFETY. WILL ENDORSE TO NEXT SHIFT.
[2021-07-18] MEDS: PANTOPRAZOLE 40 MG TABLET.DR PO SCH (07:48)
[2021-07-18] MEDS: INSULIN ASPART/LISPRO 100 UNIT/ML CARTRIDGE SQ SCH ×3 (07:49→17:30)
[2021-07-18 08:17] VITALS: BP 99/57
--- NOTE | 2021-07-18 08:25 | NUR ---
MS RN OPENING NOTES Patient in bed, asleep. A/O x 4. On room air, breathing evenly and unlabored. No SOB or s/s of distress noted. IV access on LUI midline, intact and patent. Right leg brace in place, s/p ORIF. Safety precautions in place: bed in low, locked position; siderails up x 2; call light within reach. Will continue to monitor.
[2021-07-18 16:04] VITALS: BP 104/47
[2021-07-18] MEDS: ENOXAPARIN SODIUM 40 MG/0.4 ML DISP.SYRIN SQ SCH (17:55)
--- NOTE | 2021-07-18 17:57 | NUR ---
RN NOTE Patient's BS is 117, held scheduled Novolog.
--- NOTE | 2021-07-18 19:15 | NUR ---
RN NOTE Called [facility] and gave report to ANN MARIE Finley.
--- NOTE | 2021-07-18 19:30 | NUR ---
DISCHARGE NOTE Received order for discharge. Patient is A/O x 4, mainly Farsi speaking; able to make needs known. Stable on room air, no SOB or s/s of distress noted. Patient denies any pain or discomfort at this time. Photo of sacrum taken and placed in chart. Report given to EMT. Belongings accounted for, belonging sheet signed. Exitcare folder given to EMT. IV access removed, catheter tip intact; pressure dressing applied, no signs of bleeding noted. ID band removed. Patient left in stable condition via ambulance with 2 fuel efficient aircraft designer present.
== END 2021-07-18 19:45 | DRG 480 ==
LOC: ER 08:07 → TELE 13:10 → MED 07-05 17:09
PROVIDERS: ADMIT Nurse Practitioner Acute Care; ATTEND Nurse Practitioner Acute Care
PROC: 0QS604Z Reposition Right Upper Femur with Internal Fixation Device, Open Approach (ICD-10-PCS; principal; 2021-07-08)
PROC: 05H533Z Insertion of Infusion Device into Right Subclavian Vein, Percutaneous Approach (ICD-10-PCS; 2021-07-08)
PROC: B546ZZA Ultrasonography of Right Subclavian Vein, Guidance (ICD-10-PCS; 2021-07-08)
PROC: 30233N1 Transfusion of Nonautologous Red Blood Cells into Peripheral Vein, Percutaneous Approach (ICD-10-PCS; 2021-07-09)
DX: M97.01XA Periprosthetic fracture around internal prosthetic right hip joint, initial encounter (principal); S72.331A Displaced oblique fracture of shaft of right femur, initial encounter for closed fracture; W18.30XA Fall on same level, unspecified, initial encounter; D72.829 Elevated white blood cell count, unspecified; I10 Essential (primary) hypertension; E88.09 Other disorders of plasma-protein metabolism, not elsewhere classified; E11.65 Type 2 diabetes mellitus with hyperglycemia; E66.01 Morbid (severe) obesity due to excess calories; D63.8 Anemia in other chronic diseases classified elsewhere; E78.5 Hyperlipidemia, unspecified; R74.01 Elevation of levels of liver transaminase levels; Z68.29 Body mass index [BMI] 29.0-29.9, adult; Z79.4 Long term (current) use of insulin; Y92.009 Unspecified place in unspecified non-institutional (private) residence as the place of occurrence of the external cause; Z20.822 Contact with and (suspected) exposure to COVID-19
CPT/HCPCS: 36415; 71045-TC; 73502; 73552; 73562; 73700-TC; 80048-TC; 80053-TC; 80061-TC; 80076-TC; 82962-TC; 83690-TC; 83735-TC; 84100-TC; 84484-TC; 85025-TC; 85027-TC; 85610-TC; 85730-TC; 86850-TC; 87081-TC; 93307-TC; 93971-TC; 97110-TC; 97112-TC; 97530-TC; C1713; C9113; C9803; G0378; J0690; J1170; J1650; J1815; J2250; J2270; J2405; J2704; J2765; J3010; J3490; J7030; J7060; L1830; P9016